=== PATIENT | female | born 1995 | race Caucasian/White ===

== ENCOUNTER 2021-08-08 16:19 | Emergency (ER) | payer OTHER ==
[~2021-08-08] VITALS: Ht 162.6 cm; Wt 77.3 kg
[2021-08-08 18:06] LABS: BASO % 0.4 % (0.0-2.0); EOS # 0.2 K/mm3 (0.0-0.7); EOS % 1.5 % (0.0-4.0); GRAN # 6.9 K/mm3 (1.4-6.5); GRAN % 69.3 % (42.2-75.2); HEMATOCRIT 40.8 % (37.0-47.0); HEMOGLOBIN 13.2 g/dl (12.5-16.0); LYMPH # 2.2 K/mm3 (1.2-3.4); LYMPH % 21.7 % (20.0-51.0); MEAN CELL VOLUME 86 fl (80.0-100.0); MEAN CORPUSCULAR HEMOGLOBIN 28 pg (27-31); MEAN CORPUSCULAR HGB CONC 32 g/dl (33.0-37.0); MEAN PLATELET VOLUME 11.2 fl (7.4-10.4); MONO # 0.7 K/mm3 (0.1-0.6); MONO % 6.7 % (1.7-9.3); PLATELET COUNT 269 K/mm3 (130-400); RED BLOOD COUNT 4.76 M/mm3 (4.10-5.30); REDCELL DISTRIBUTION WIDTH-CV 13.4 % (11.5-14.5)
[2021-08-08 18:20] LABS: ALBUMIN 4.4 gm/dL (3.5-5.0); BILIRUBIN,TOTAL 0.4 mg/dL (0.2-1.2); CALCIUM 9.9 mg/dL (8.4-10.2); CREATININE, serum 0.73 mg/dL (0.57-1.11); POTASSIUM 3.6 mmol/L (3.5-4.5); TOTAL PROTEIN 7.9 gm/dL (6.2-8.1)
[2021-08-08 20:16] LABS: COLLECTION METHOD CLEAN CATCH
[2021-08-08 20:20] LABS: PH 6 (5-8); SQUAMOUS EPITHELIAL 0-2 /hpf (0-10); URINE APPEARANCE Clear (CLEAR/HAZY); URINE BACTERIA None Seen /hpf (NONE SEEN); URINE BILIRUBIN Negative (NEGATIVE); URINE BLOOD 1+ (NEGATIVE); URINE COLOR Straw (YELLOW); URINE GLUCOSE Negative (NEGATIVE); URINE KETONE Trace (NEGATIVE); URINE LEUKOCYTE ESTERASE Negative (NEGATIVE); URINE NITRATE Negative (NEGATIVE); URINE PROTEIN(semi-quant) Negative (NEGATIVE); URINE RBC 0-2 /hpf (0-2); URINE UROBILINOGEN Negative (NEGATIVE)
[2021-08-08 21:30] VITALS: BP 128/64; PULSE 88; TEMP 98.2
== END 2021-08-08 21:30 | disposition home or self-care (01) ==
LOC: COL.ER 16:19
PROVIDERS: Physician Assistant
DX: O20.9 Hemorrhage in early pregnancy, unspecified (principal); Z3A.01 Less than 8 weeks gestation of pregnancy
CPT/HCPCS: J7030

== ENCOUNTER 2022-03-19 08:06 | Inpatient (IN) | payer OTHER ==
[~2022-03-19] VITALS: Ht 162.6 cm; Wt 104.1 kg
[2022-03-24] VITALS (22 sets, daily range): BP systolic 129–162; BP diastolic 77–101; PULSE 88–136; TEMP 98.2–98.6
[2022-03-24 15:46] LABS: BASO % 0.2 % (0.0-2.0); EOS # 0.2 K/mm3 (0.0-0.7); EOS % 1.7 % (0.0-4.0); GRAN # 6.6 K/mm3 (1.4-6.5); GRAN % 74.1 % (42.2-75.2); HEMOGLOBIN 11.7 g/dl (12.5-16.0); LYMPH # 1.5 K/mm3 (1.2-3.4); LYMPH % 16.5 % (20.0-51.0); MEAN CELL VOLUME 88 fl (80.0-100.0); MEAN CORPUSCULAR HEMOGLOBIN 29 pg (27-31); MEAN CORPUSCULAR HGB CONC 32 g/dl (33.0-37.0); MEAN PLATELET VOLUME 12.3 fl (7.4-10.4); MONO # 0.6 K/mm3 (0.1-0.6); MONO % 6.7 % (1.7-9.3); PLATELET COUNT 195 K/mm3 (130-400); REDCELL DISTRIBUTION WIDTH-CV 14.9 % (11.5-14.5)
[2022-03-24 15:47] LABS: HEMATOCRIT 36.1 % (37.0-47.0)
[2022-03-24] MEDS ORDERED: NORMODYNE100 MG (15:49)
[2022-03-24] MEDS ORDERED: PRENATAL TABLET (15:49)
--- NOTE | 2022-03-24 17:23 | NUR ---
1450-PT PRESENTS TO L&D IN STABLE CONDITION FOR INDUCTION OF LABOR. PT IS A 41 WEEK AND 4 DAYS WITH CHRONIC HYPERTENTION. PT DENIES DECREASED MOVEMENT, VAGINAL BLEEDING, CONTRACTIONS, AND LEAKING OF FLUID. PT PLACED IN ROOM 4 FOR FURTHER ASSESSMENT.
[2022-03-25] VITALS (63 sets, daily range): BP systolic 120–162; BP diastolic 61–104; PULSE 73–160; TEMP 98–102.9
--- NOTE | 2022-03-25 02:20 | NUR ---
PT AMB TO BR TO VOID, BACK TO BED, SVE DONE OUTER OS IS FELT AT 7 CM, INNER OS 4 CM/90/-2. I HAVE NOT SEEN ANY FLUID RETURN AFTER THE VAG EXAMS OR ON THE BEDPADS. DR KOLB NOTIFIED OF ALL THIS. NO NEW ORDERS BUT WILL CONTINUE TO MONITOR. PT IS STILL FEELING THE UC'S AND BREATHING THROUGH THEM. SHE STATES SHE IS DOING OK AND DOES NOT WANT AN EPIDURAL AT THIS TIME.
--- NOTE | 2022-03-25 08:33 | NUR ---
0827-PT ON BIRTHING BALL. US AND TOCO ADJUSTED. FHR IN THE 140S AT THIS TIME. CATEGORY 1 STRIP. PT STABLE.
--- NOTE | 2022-03-25 13:00 | NUR ---
PT SITTING FOR EPIDURAL. UNABLE TO CONTINOUSLY MONITOR FHR. RN CONTINOUSLY AT BEDSIDE. PULSE OX ON, IV BOLUS GIVEN, AND TIME OUT COMPLETED.
--- NOTE | 2022-03-25 13:09 | NUR ---
PT LAYING DOWN AFTER EPIDURAL. PT TOLERATED PROCEDURE WELL. PT PAIN IMPROVING PER PT REPORT. CARE PLAN UPDATED.
--- NOTE | 2022-03-25 14:22 | NUR ---
PT PUSHING WITH CONTRACTIONS. RN CONTINOUSLY AT BEDSIDE MONITORING FHR. PT COPING WELL WITH LABOR. FHR IN THE 140S WITH MODERATE VARIABILITY.
[2022-03-25 17:37] LABS: HEMOGLOBIN 10.8 g/dl (12.5-16.0)
[2022-03-25 17:47] LABS: HEMATOCRIT 32.9 % (37.0-47.0)
--- NOTE | 2022-03-25 18:00 | NUR ---
1630-PT PUSHING WITH CONTRACTIONS. HEAD DESCENDING WITH PUSHING. PT COPING WELL WITH PUSHING. DR. KOLB AT BEDSIDE. FHR IN THE 170S AT THIS TIME WITH MINIMAL VARIABILITY. 164- OF INFANT HEAD FOLLOWED BY INFANT BODY BY DR. KOLB. 164- OF PLACENTA BY DR. KOLB. PITOCIN BOLUS INITIATED. GUSH OF BLOOD EXPRESSED BY DR. KOLB AFTER DELIVERY OF PLACENTA. FUNDAL MASSAGE PERFORMED BY DR. KOLB. FUNDUS FIRM PER MD. CYTOTEC 800MG ORDERED. 165-800MG CYTOTECT GIVEN BY DR. KOLB RECTALLY. PT ACTIVELY BLEEDING. FUNDUS FIRM AT UMBILICUS. MATERNAL HR IN THE 160S. PT FEELING NAUSEOUS AND BEGINS THROWING UP BILE COLORED EMESIS. PT PALE AND SHIVERING. HEAD OF BED LOWERED. B/P 151/75. TXA 1G ORDERED BY DR. KOLB. 1704-TXA 1G IVPB STARTED. PT TEMP 102.9F. PT HEAD OF BED RAISED. PT IMMEDIATELY BEGINS FEELING NAUSEAUS AND THROWING UP EMESIS. HEAD OF BED LOWERED. PT FEELING BETTER WITH HOB LOWERED. MATERNAL HR IN THE 150S. 1708-PERICARE COMPLETED BY RN. PT FEET ELEVATED. PT FEELING BETTER. FUNDAL CHECK PERFORMED BY RN. FIRM, MIDLINE, AT UMBILICUS WITH MODERATE LOCHIA. 1718-ZOFRAN 4MG IV GIVEN AND 1000MG TYLENOL PO GIVEN BY RN FROM VERBAL ORDER FROM DR. KOLB. LAB AT BEDSIDE PERFORMING STAT H&H. 1720-PT TOLERATED HOB ELEVATED. PT SKIN BACK TO NORMAL TONE AND COLOR. VS WNL. 1730-FUNDUS FIRM, MIDLINE, AT UMBILICUS WITH MODERATE LOCHIA. ORDERED ASHLEY TO BE PLACED. PT STABLE AT THIS TIME. 1755-ASHLEY CATHETER PLACED BY Ela STRANGE RN. FUNDAL CHECK WNL. 1810-BEDSIDE REPORT GIVEN TO Sunil GÓMEZ RN. PT STABLE AT THIS TIME. FUNDAL CHECK WNL. PT SITTING UPRIGHT INFANT. PT DENIES ANY PAIN. CARE TO CONTINUE.
--- NOTE | 2022-03-25 19:55 | NUR ---
1954 - DR. KOLB IN HOUSE FOR ANOTHER DELIVERY. UPDATED ON PT'S CURRENT VS AND VAGINAL BLEEDING. INFORMED OF TOTAL QBL SINCE DELIVERY. DR. KOLB STATE PT MAY EAT DINNER AND BE MOVED TO WHEN READY. ALSO WISHES TO CONTINUE HOLDING LABETALOL AT THIS TIME. 2004 - DR. KOLB AT BEDSIDE, EVALUATES PT AND DISCUSSES PLAN OF CARE.
--- NOTE | 2022-03-25 21:45 | NUR ---
2145 - PERICARE PERFORMED IN BED, CLEAN GOWN, PAD AND PANTIES PROVIDED. EPIDURAL CATHETER REMOVED CHARTED. PT ASSISTED TO SITTING POSITION. STEADY ROQUE USED TO TRANSFER PT TO RM 214. BABY AND BELONGINGS WITH PT. PT ORIENTED TO ROOM AND CALL LIGHT. PLAN OF CARE DISCUSSED. NO FURTHER NEEDS AT THIS TIME.
[2022-03-26 00:05] VITALS: BP 129/73; PULSE 111; TEMP 98.2
[2022-03-26 04:00] VITALS: BP 133/83; PULSE 103; TEMP 98.1
[2022-03-26 06:13] LABS: MEAN CELL VOLUME 91 fl (80.0-100.0); MEAN CORPUSCULAR HGB CONC 33 g/dl (33.0-37.0); MEAN PLATELET VOLUME 12.3 fl (7.4-10.4); PLATELET COUNT 166 K/mm3 (130-400); RED BLOOD COUNT 3.04 M/mm3 (4.10-5.30); REDCELL DISTRIBUTION WIDTH-CV 15.1 % (11.5-14.5)
[2022-03-26 06:16] LABS: HEMATOCRIT 27.7 % (37.0-47.0); HEMOGLOBIN 9.2 g/dl (12.5-16.0); MEAN CORPUSCULAR HEMOGLOBIN 30 pg (27-31)
[2022-03-26] MEDS ORDERED: IBU800 M1 PO (08:35)
[2022-03-26 08:46] VITALS: BP 143/88; PULSE 100; TEMP 97.6
--- NOTE | 2022-03-26 09:56 | NUR ---
Initial visit; Patient resting, Security Threat Analyst left card of congratulations and God's blessings for the of their daughter and information regarding the availability of Spiritual Care at [facility].
[2022-03-26 13:02] VITALS: BP 135/51; PULSE 110
[2022-03-26 16:30] VITALS: BP 130/75; PULSE 105; TEMP 97.8
[2022-03-26 18:57] VITALS: BP 128/51; PULSE 86; TEMP 98.1
[2022-03-27 09:00] VITALS: BP 145/89; PULSE 113; TEMP 97.6
== END 2022-03-27 11:27 | disposition home or self-care (01) | DRG 806 ==
LOC: OB 03-24 08:05 → LDR 03-24 14:38 → OB 03-24 14:38 → LDR 03-24 21:41 → OB 03-25 22:00
PROVIDERS: ADMIT Obstetrics & Gynecology
PROC: 10E0XZZ Delivery of Products of Conception, External Approach (ICD-10-PCS; principal; 2022-03-25)
PROC: 0KQM0ZZ Repair Perineum Muscle, Open Approach (ICD-10-PCS; 2022-03-25)
PROC: 3E033VJ Introduction of Other Hormone into Peripheral Vein, Percutaneous Approach (ICD-10-PCS; 2022-03-25)
PROC: 10907ZC Drainage of Amniotic Fluid, Therapeutic from Products of Conception, Via Natural or Artificial Opening (ICD-10-PCS; 2022-03-25)
DX: O10.92 Unspecified pre-existing hypertension complicating childbirth (principal); O72.1 Other immediate postpartum hemorrhage; Z37.0 Single live birth; Z3A.39 39 weeks gestation of pregnancy; Z14.1 Cystic fibrosis carrier; O70.1 Second degree perineal laceration during delivery
CPT/HCPCS: J2405; J2590; J2795; J7120

== ENCOUNTER 2023-05-21 10:09 | Inpatient (IN) | payer OTHER ==
[~2023-05-21] VITALS: Ht 162.6 cm; Wt 105.9 kg
[2023-05-21] VITALS (44 sets, daily range): BP systolic 114–167; BP diastolic 56–97; PULSE 81–121; TEMP 97.6–98.2
[~2023-05-21 10:09] MED LIST: IBU800 M1 PO; NORMODYNE100 MG; PRENATAL TABLET
--- NOTE | 2023-05-21 10:20 | NUR ---
PT AMBULATORY TO LR3 WITH SPOUSE. PT CHANGED INTO CLEAN GOWN. PT DENIES VAGINAL BLEEDING, LEAKING OF FLUID, OR REGULAR CONTRACTIONS. PT REPORTS GOOD MOVEMENT. FHR MONITOR/TOCO APPLIED. VITAL SIGNS WNL. AFEBRILE. PLAN OF CARE AND INDUCTION OF LABOR DISCUSSED. PT VERBALIZES UNDERSTANDING.
--- NOTE | 2023-05-21 11:32 | NUR ---
ROLES ON UNIT REVIEWING FHR STRIP. 1133 ROLES AT PT'S BEDSIDE, ASSESSING PT. POC DISCUSSED. PT VERBALIZES UNDERSTANDING.
[2023-05-21 11:54] LABS: BASO % 0.4 % (0.0-2.0); EOS # 0.1 K/mm3 (0.0-0.7); EOS % 1.8 % (0.0-4.0); GRAN # 4.9 K/mm3 (1.4-6.5); GRAN % 69.5 % (42.2-75.2); HEMATOCRIT 38.8 % (37.0-47.0); HEMOGLOBIN 12.5 g/dl (12.5-16.0); LYMPH # 1.5 K/mm3 (1.2-3.4); LYMPH % 21.6 % (20.0-51.0); MEAN CELL VOLUME 90 fl (80.0-100.0); MEAN CORPUSCULAR HEMOGLOBIN 29 pg (27-31); MEAN CORPUSCULAR HGB CONC 32 g/dl (33.0-37.0); MEAN PLATELET VOLUME 12.1 fl (7.4-10.4); MONO # 0.5 K/mm3 (0.1-0.6); MONO % 6.3 % (1.7-9.3); PLATELET COUNT 163 K/mm3 (130-400); RED BLOOD COUNT 4.29 M/mm3 (4.10-5.30); REDCELL DISTRIBUTION WIDTH-CV 14.9 % (11.5-14.5)
--- NOTE | 2023-05-21 12:30 | NUR ---
THIS RN ATTEMPTING TO ADJUST TOCO.
--- NOTE | 2023-05-21 18:04 | NUR ---
Ileana JACOBSEN WASHING MACHINE LOADER CALLED TO COME TO HOSPITAL FOR EPIDURAL PLACEMENT
--- NOTE | 2023-05-21 19:07 | NUR ---
1825- PATIENT ASSISTED TO SIDE OF THE BED. DIFFICULTY TRACING HEART RATE DUE TO MATERNAL POSITIONING. PULSE OX APPLIED 1827- MATILDE CRAMER EXPLAINS PROCEDURE AND RISK OF EPIDURAL. 183- TEST DOSE ADMINISTERED BY MATILDE CRAMER. SEE ANESTHESIA RECORDS. 1845- PATIENT REPOSITIONED TO SEMIFOWLERS. PLAN OF CARE AND SAFETY PRECAUTIONS EXPLAINED TO PATIENT AND FAMILY.
--- NOTE | 2023-05-21 19:20 | NUR ---
1919- ASHLEY CATHETER PLACED. DIFFICULTY TRACING HEART RATE DUE TO MATERNAL POSITINING.
--- NOTE | 2023-05-21 23:28 | NUR ---
2004- PATIENT CALLED STATING SHE HAD INCREASE IN PRESSURE. SVE 9-/0. 2009- PATIENT CALLED STATING SHE HAD INCREASE IN PRESSURE THAT WASN'T GOING AWAY. SVE COMPLETE 2011- DR. KOLB NOTIFIED. STATED SHE WILL COME TO THE HOSPITAL FOR IMPENDING DELIVERY. 2013- ASHLEY CATHETER REMOVED. PERICARE PROVIDED. 2016- PRACTICE PUSHING PERFORMED. PATIENT PUSHING WELL WITH GOOD MOVEMENT OF THE HEAD. PATIENT INSTRUCTED TO STOP PUSHING UNTIL DR. KOLB ARRIVES. 2023- DR. KOLB AT [facility]. BED BROKEN DOWN FOR DELIVERY. 2026- PATIENT BEGINS PUSHING WITH DR. KOLB. 2027- SPONTANEOUS VAGINAL DELIVERY OF VIABLE BABY GIRL. CORD CLAMPED BY DR. KOLB AND CUT BY FOB. BABY TO MOTHER ABDOMEN. DRIED AND STIMULATED. BABY CARES ASSUMED BY Tristen CHUA RN. 2031- SPONTANEOUS DELIVERY OF INTACT PLACENTA THROUGH 2ND DEGREE LACERATION. PITOCIN STARTED AT 333ML/HR PER PROTOCOL. DR KOLB BEGINS REPAIR OF 2ND DEGREE LACERATION. 2035- 800MCG CYTOTEC ADMINISTERED BY DR. KOLB. 2124- DR. KOLB AT BEDSIDE TO ASSESS PATIENTS BLEEDING. DR. KOLB REQUESTED TRANEXAMIC ACID 1,000MG/10ML.
--- NOTE | 2023-05-21 23:43 | NUR ---
2250- PATIENT ABLE TO LIFT BILATERAL LOWER EXTREMITIES. PATIENT SITTING ON EDGE OF BED. EPIDURAL CATHETER REMOVED WITH TIP INTACT. PATIENT TOLERATED WELL. DENIES FEELING LIGHT HEADED. 2255- PATIENT AMBULATED TO RESTROOM FOLLOWING DELIVERY. PERICARE PROVIDED. HOSPTIAL GOWN CHANGED. PATIENT UNABLE TO VOID. MESH UNDERWEAR, ICEPACK AND PAD ON. 230- PATIENT TRANSFERRED TO ROOM VIA WHEELCHAIR. PATIENT ORIENTED TO ROOM. PATIENT EDUCATED ON CALLING FOR HELP BEFORE GETTING OUT OF BED. QUESTIONS ENCOURAGED AND ANSWERED.
[2023-05-22 02:39] VITALS: BP 131/78; PULSE 84; TEMP 98.6
[2023-05-22 08:07] VITALS: BP 124/82; PULSE 92; TEMP 97.6
[2023-05-22] MEDS ORDERED: IBU800 M1 PO (09:33)
[2023-05-22 11:42] VITALS: BP 126/69; PULSE 97; TEMP 98
[2023-05-22 17:17] VITALS: BP 120/72; PULSE 69; TEMP 97.5
[2023-05-22 19:35] VITALS: BP 117/74; PULSE 86; TEMP 98.1
== END 2023-05-22 22:25 | disposition home or self-care (01) | DRG 807 ==
LOC: LDR 10:09 → OB 12:57
PROVIDERS: ADMIT Obstetrics & Gynecology
PROC: 10E0XZZ Delivery of Products of Conception, External Approach (ICD-10-PCS; principal; 2023-05-21)
PROC: 3E033VJ Introduction of Other Hormone into Peripheral Vein, Percutaneous Approach (ICD-10-PCS; 2023-05-21)
DX: O70.1 Second degree perineal laceration during delivery (principal); Z37.0 Single live birth; Z3A.40 40 weeks gestation of pregnancy
CPT/HCPCS: J2590; J2795; J7120